=== PATIENT | male | born 1950 | race Caucasian/White ===

== ENCOUNTER → 2017-06-06 | Outpatient (CLI) | payer OTHER, SELFPAY | END | disposition home or self-care (01) | LOC: GMAB 10:20 | PROVIDERS: ATTEND Family Medicine | DX: Z12.5 Encounter for screening for malignant neoplasm of prostate (principal); I10 Essential (primary) hypertension | CPT/HCPCS: 84443; G0103 ==

== ENCOUNTER 2017-06-08 03:41 | Day surgery (SDC) | payer MEDICARE, OTHER ==
[2017-06-08] MEDS ORDERED: PROPOFOL 200 MG/20 ML VIAL IV ONE (07:00)
[2017-06-08] MEDS ORDERED: SODIUM CHL 0.9% 100ML MINI-BAG 100 ML IVPB ONE (07:01)
[2017-06-08] MEDS ORDERED: LACTATED RINGERS 1,000 ML ONE ×2 (07:01→12:07)
[2017-06-08] MEDS ORDERED: ceFAZolin SODIUM 1 GM VIAL ONE (07:02)
[2017-06-08] MEDS ORDERED: fentaNYL CITRATE INJ 50 MCG/ML AMP ONE (07:46)
[2017-06-08] MEDS ORDERED: BUPIVACAINE 0.25% W/EPI 50 ML VIAL INJ ONE (10:03)
--- NOTE | 2017-06-08 13:20 | OP ---
DATE OF PROCEDURE: 06/08/17 PREOPERATIVE DIAGNOSIS: 1. Recurrent left inguinal hernia. POSTOPERATIVE DIAGNOSIS: 1. Recurrent left inguinal hernia with indirect hernia. PROCEDURE: 1. Repair of recurrent indirect inguinal hernia. SURGEON: Raul Redd MD. DRILL DOCTOR: None. ANESTHESIA: General endotracheal anesthesia and local infiltration of 0.25% Marcaine with epinephrine. INDICATION: The patient is a 67-year-old white male who underwent bilateral herniorrhaphy 10 plus years ago. He has developed a tender, reducible mass in the left lower quadrant. The patient was brought to the Surgical Suite today for repair or same. FINDINGS: The floor of the canal was intact. There was an indirect hernia sac with omentum within it. No sliding component was identified and no direct component was identified. PROCEDURE: After adequate general anesthesia was obtained, the patient was prepped and draped in the usual sterile manner. At this point, a surgical time- out was taken. The previous incision was then infiltrated with local anesthesia and the medial 3/4 of this incision was re-incised with a sharp knife. Dissection was carried down through the skin and subcutaneous tissue to the external oblique fascia. Medial to the external oblique fascia, what appeared to be a hernia was identified anterior to the cord. The external oblique fascia was then opened in the direction of the fibers through the external inguinal ring back to the area of the internal inguinal ring. Self- retaining retractor was placed at this level. When this was done, the cord was dissected free from the floor of the canal carefully. The hernia sac was identified and dissected free down to the floor of the canal and reduced below the floor of the canal. A Surgimesh round patch was introduced under the floor of the canal and sutured in all four corners to repair the indirect defect, when this was done, the cord was placed back int he canal. The wound was irrigated with saline. The external oblique fascia was then closed with running 2-0 Vicryl suture. The cord and subcutaneous tissue above, below and lateral to the incision were infiltrated with local anesthesia. The Archana's fascia was approximated with interrupted 3-0 Chromic suture. Skin edges were approximated with skin stapler. Sterile pressure dressing was applied. The patient was awakened and taken to the Recovery Room in good and stable condition. Estimated blood loss was less than 25 mL. All sponge, needle and instrument counts were correct. #[id number] [facility]
[2017-06-08 13:55] VITALS: BP 128/70; TEMP 98; O2SAT 97
== END 2017-06-08 13:40 | disposition home or self-care (01) ==
LOC: AMB 03:41
PROVIDERS: ATTEND Surgery
DX: K40.91 Unilateral inguinal hernia, without obstruction or gangrene, recurrent (principal); K21.9 Gastro-esophageal reflux disease without esophagitis; I10 Essential (primary) hypertension; F17.220 Nicotine dependence, chewing tobacco, uncomplicated; I25.10 Atherosclerotic heart disease of native coronary artery without angina pectoris; I25.2 Old myocardial infarction; Z88.8 Allergy status to other drugs, medicaments and biological substances; Z79.82 Long term (current) use of aspirin; Z79.899 Other long term (current) drug therapy
CPT/HCPCS: 00830; 49520; C1781; J0690; J3010; J3490; J7050; J7120

== ENCOUNTER → 2018-08-01 | Outpatient (CLI) | payer MEDICARE, OTHER | LOC: GMAE 10:48 | PROVIDERS: ATTEND Family Medicine | DX: I10 Essential (primary) hypertension (principal); Z12.5 Encounter for screening for malignant neoplasm of prostate | CPT/HCPCS: 84443; G0103 ==

== ENCOUNTER → 2018-08-09 | Outpatient (CLI) | payer MEDICARE, OTHER ==
--- NOTE | 2018-08-09 11:23 | US ---
EXAM DESCRIPTION: Aorta: Ultrasound. CLINICAL HISTORY: ENCOUNTER OF SCREENING FOR OTHER DISORDER COMPARISON: 2 view chest radiographs 06/06/2017. TECHNIQUE: Transcutaneous scanning: Two-dimensional and Doppler modes. FINDINGS: Abdominal aorta diameter - Proximal aorta: 4.1 x 3.1 cm. Mid aorta: 2.9 x 2.2 cm. Distal aorta: 2.3 x 2.0 cm. Common Iliac diameter - Right: 9 mm. Left: 13 mm. Other: None.. IMPRESSION: Since the proximal abdominal aorta is dilated more than the mid and distal aorta, the mid and distal segments are ectatic. The proximal abdominal aorta should be compared to the distal thoracic aorta to evaluate if this is a true aneurysm. This can be performed by CT scan or CTA. Otherwise, consider vascular surgical consult and ultrasound follow-up in one year, according to [facility] Best Practice recommendations. Please see below*. No aneurysm in the bilateral common iliac arteries. * Abdominal aorta diameter 4.0 cm to 4.4 cm. Recommend vascular consultation and annual follow-up. Reference: J Vasc Surg 2009 Oct;50(4 Suppl):S2-49. Electronically signed by: Otf Barnett MD 08/09/2018 11:19 AM CDT
== END ==
LOC: US 08:30
PROVIDERS: ATTEND Family Medicine
DX: Z13.89 Encounter for screening for other disorder (principal)

== ENCOUNTER → 2019-10-27 | Outpatient (CLI) | payer MEDICARE, OTHER | LOC: GMAE 11:22 | PROVIDERS: ATTEND Family Medicine | DX: Z12.5 Encounter for screening for malignant neoplasm of prostate (principal); I10 Essential (primary) hypertension; E78.2 Mixed hyperlipidemia | CPT/HCPCS: 84443; G0103 ==